=== PATIENT | male | born 1960 | race Caucasian/White ===

== ENCOUNTER 2016-11-16 21:03 | Emergency (ER) | payer BC, OTHER ==
[~2016-11-16] VITALS: Ht 180.3 cm; Wt 99.5 kg
[2016-11-16 21:40] VITALS: Ht 180.3 cm; Wt 99.5 kg
[2016-11-16] MEDS ORDERED: KETOROLAC 30 MG INJ IV STA (21:52)
[2016-11-16] MEDS ORDERED: CLINDAMYCIN 600 MG/D5W (PMX) 50 ML IVPB SCH (22:00)
[2016-11-16] MEDS ORDERED: DEXAMETHASONE 10 MG/ML 1 ML INJ IV ONE (22:00)
[2016-11-16] MEDS ORDERED: AZIT500T3 PO (22:06)
--- NOTE | 2016-11-16 22:11 | ERD ---
ER Documentation Chief Complaint Date/Time DATE: 11/16/16 TIME: 22:05 Chief Complaint sore throat x4 days already taking z-pack HPI 56-year-old male presents to emergency department for complaints of left throat pain for 4 days. Patient described the pain as throbbing pain, 6/10 scale, is worse upon swallowing. Patient was taking azithromycin and it was not helping. Patient has been having on and off fever. Patient denies any stridor or shortness of breath. Patient is able to swallow without any difficulty but with pain. She was able to open and close the mouth without any difficulty. ROS All systems reviewed and are negative except as per history of present illness. Medications Home Meds Reported Medications Azithromycin* (Zithromax*) Unknown Strength Tablet, PO DAILY for 3 Days, TAB 11/16/16 Allergies Allergies: Coded Allergies: No Known Allergy (Unverified , 11/16/16) PMhx/Soc History of Surgery: Yes (back sx) Hx Miscellaneous Medical Probl: Yes (Mediterranean fever) Hx Alcohol Use: No Hx Substance Use: No Hx Tobacco Use: Yes Smoking Status: Current every day smoker FmHx Family History: No coronary disease, No diabetes, No other Physical Exam Vitals Vital Signs Date Time Temp Pulse Resp B/P Pulse Ox O2 Delivery O2 Flow Rate FiO2 11/16/16 21:40 99.5 92 16 167/95 94 Physical Exam GENERAL: The patient is well developed and appropriate for usual state of health, in no apparent distress. HEENT: Atraumatic. Ears: Normal tympanic membrane, no erythema or bulging. No ear canal swelling. No ear discharge. Nose: normal nasal turbinates, no erythema or swelling. Normal nasal discharge. Throat: oropharynx erythematous, left tonsillar swelling and exudates noted. No lymphadenopathy. CHEST: Clear to auscultation bilaterally. There are no rales, wheezes or rhonchi. HEART: Regular rate and rhythm. No murmurs, clicks, rubs or gallops. No S3 or S4. ABDOMEN: Soft, nontender and nondistended. Good bowel sounds. No rebound or guarding. No gross peritonitis. No gross organomegaly or masses. No Driver sign or McBurney point tenderness. BACK: No midline or flank tenderness. EXTREMITIES: Equal pulses bilaterally. There is no peripheral clubbing, cyanosis or edema. No focal swelling or erythema. Full range of motion. Grossly neurovascularly intact. NEURO: Alert and oriented. Cranial nerves 2-12 intact. Motor strength in all 4 extremities with 5/5 strength. Sensation grossly intact. Normal speech and gait. SKIN: There is no apparent rash or petechia. The skin is warm and dry. HEMATOLOGIC AND LYMPHATIC: There is no evidence of excessive bruising or lymphedema. No gross cervical, axillary, or inguinal lymphadenopathy. Results 24 hrs Current Medications Medications (Trade) Dose Ordered Sig/Keiko Route PRN Reason Start Time Stop Time Status Last Admin Dose Admin Ketorolac Tromethamine 30 mg 30 mg ONCE STAT IV 11/16/16 21:52 11/16/16 21:53 DC Clindamycin HCl/ Dextrose (Cleocin 600 Mg/ D5W (Pmx)) 50 ml @ 50 mls/hr ONCE IVPB 11/16/16 22:00 11/16/16 22:59 Dexamethasone (Decadron) 10 mg ONCE ONCE IV 11/16/16 22:00 11/16/16 22:01 DC Patient was given medication for pain here in emergency department, after treatment, patient verbalized feeling much better. Patient's pain is improved. Clindamycin and IV Decadron was given here in emergency department for treatment. Verbalized feeling much better afterwards. Procedures/MDM Medical decision making: Patient symptoms is likely consistent with acute bacterial pharyngitis, most likely strep throat. Can be early peritonsillar abscess, low suspicion for mononucleosis, no symptoms of epiglottitis, laryngitis. No oral airway obstruction noted. No symptoms of sepsis at this time. Patient appears well and is hemodynamically stable. Patient was given for clindamycin, prednisone, ibuprofen, Tylenol, is advised to follow-up with primary care doctor in 2-3 days for reevaluation of symptoms. Patient is advised to do salt water gargles. Patient is advised to return to emergency department for worsening symptoms. Patient was advised to see ENT specialist if worsening symptoms. Disposition: Home. Stable. Departure Diagnosis: Primary Impression: Acute bacterial pharyngitis Condition: Stable Patient Instructions: Pharyngitis, Strep (Presumed) JEANA TRENT NP November 16, 2016 22:11
[2016-11-16] MEDS ORDERED: PRED50TA PO (22:12)
[2016-11-16] MEDS ORDERED: ACET500C5 PO (22:12)
[2016-11-16] MEDS ORDERED: IBUP-1542 PO (22:12)
[2016-11-16] MEDS ORDERED: CLIN-73 PO (22:12)
[2016-11-16 23:25] VITALS: BP 140/82; PULSE 84; RESP 20; TEMP 99.2
== END 2016-11-16 23:26 | disposition home or self-care (01) ==
LOC: FTE 21:03
DX: J02.9 Acute pharyngitis, unspecified (principal); F17.210 Nicotine dependence, cigarettes, uncomplicated
CPT/HCPCS: J1100; J1885; 96365; 96375